=== PATIENT | male | born 1990 | race Caucasian/White ===

== ENCOUNTER 2018-02-18 14:13 | Emergency (ER) | payer SELFPAY ==
[~2018-02-18] VITALS: Ht 177.8 cm; Wt 74.8 kg
[2018-02-18 14:20] VITALS: BP 107/71
[2018-02-18] MEDS ORDERED: KETOROLAC TROMETH 60MG/2ML VIAL IM ONE (15:30)
== END 2018-02-18 17:25 | disposition home or self-care (01) ==
LOC: ER 14:15
DX: S00.83XA Contusion of other part of head, initial encounter (principal); Z88.8 Allergy status to other drugs, medicaments and biological substances; Y08.89XA Assault by other specified means, initial encounter; Y93.89 Activity, other specified; Y99.8 Other external cause status; Y92.89 Other specified places as the place of occurrence of the external cause
CPT/HCPCS: 70450; 72125; 96372; 99284; J1885